=== PATIENT | female | born 1975 | race Caucasian/White ===

== ENCOUNTER → 2020-07-10 09:00 | Outpatient (CLI) | payer OTHER, SELFPAY | PROVIDERS: Visit Provider Internal Medicine | DX: Z11.59 Encounter for screening for other viral diseases (principal) | CPT/HCPCS: 87635; U0002 ==

== ENCOUNTER → 2020-11-18 12:15 | Outpatient (REF) | payer OTHER, SELFPAY ==
[2020-11-19 16:49] LABS: Specimen Processing Control N A
== END ==
LOC: LABSPEC 12:15
PROVIDERS: Visit Provider Internal Medicine
DX: Z20.828 Contact with and (suspected) exposure to other viral communicable diseases (principal)
CPT/HCPCS: 87635; U0005; U0003